=== PATIENT | female | born 1955 | race Two or more races ===

== ENCOUNTER 2017-09-24 10:57 | Day surgery (SDC) | payer OTHER ==
[2017-09-24] MEDS ORDERED: LIDOCAINE 2% (SDV) 5 ML INJ (12:43)
[2017-09-24] MEDS ORDERED: PROPOFOL 20 ML (12:43)
[2017-09-24] MEDS ORDERED: FENTAnyl 50 MCG/ML VIAL ×2 (12:43→12:44)
[2017-09-24] MEDS ORDERED: MIDAZOLAM 1 MG/ML 2 ML INJ (12:43)
== END 2017-09-24 15:12 | disposition home or self-care (01) ==
LOC: GIL 10:57
DX: Z12.11 Encounter for screening for malignant neoplasm of colon (principal); K29.50 Unspecified chronic gastritis without bleeding
CPT/HCPCS: 43239; 88305; 88312